=== PATIENT | female | born 1995 | race Caucasian/White ===

== ENCOUNTER 2019-05-01 15:56 | Emergency (ER) | payer SELFPAY ==
[~2019-05-01] VITALS: Ht 165.1 cm; Wt 59.9 kg
--- NOTE | 2019-05-01 16:00 | NUR ---
LT SHOULDER INJURY. AA/OX4, NO DISTRESS NOTED. NEEDS ATTENDED. KEPT COMFORTABLE.
[2019-05-01] MEDS ORDERED: HYDROCODONE/APAP 5/325MG 1 EACH TABLET PO ONE (16:30)
[2019-05-01] MEDS ORDERED: HYDROCODONE/APAP 5/325MG 1 EACH TABLET ONE (16:34)
--- NOTE | 2019-05-01 17:25 | NUR ---
SLING APPLIED ON LEFT ARM.
--- NOTE | 2019-05-01 17:32 | NUR ---
Patient discharged to home in stable condition. Written and verbal after care instructions given. Patient verbalizes understanding of instruction.
[2019-05-01 17:33] VITALS: BP 147/97
== END 2019-05-01 17:35 | disposition home or self-care (01) ==
LOC: ER 15:59
DX: M25.512 Pain in left shoulder (principal); M75.102 Unspecified rotator cuff tear or rupture of left shoulder, not specified as traumatic; Z60.2 Problems related to living alone
CPT/HCPCS: 73030-TC